=== PATIENT | female | born 1985 | race Two or more races ===

== ENCOUNTER → 2017-11-20 | Outpatient (CLI) | payer MEDICAID ==
[~2017-11-20] MED LIST: GADOBUTROL 10 ML VIAL IVP ONE
== END ==
LOC: FIMAGING 15:08
PROVIDERS: ATTEND Family Medicine
DX: J01.80 Other acute sinusitis (principal); Z87.828 Personal history of other (healed) physical injury and trauma
CPT/HCPCS: A9585

== ENCOUNTER → 2018-03-29 | Outpatient (CLI) | payer MEDICAID | LOC: CIMAGING 07:56 | PROVIDERS: ATTEND Family Medicine | DX: R10.9 Unspecified abdominal pain (principal) | CPT/HCPCS: 76700-PO ==

== ENCOUNTER → 2018-08-04 | Outpatient (CLI) | payer MEDICAID | LOC: FIMAGING 09:21 | PROVIDERS: ATTEND Family Medicine | DX: M77.01 Medial epicondylitis, right elbow (principal); M77.11 Lateral epicondylitis, right elbow; M65.821 Other synovitis and tenosynovitis, right upper arm ==